=== PATIENT | female | born 1980 | race Caucasian/White ===

== ENCOUNTER → 2016-12-11 | Outpatient (CLI) | payer MEDICAID | LOC: BMCIMAGING 09:54 | PROVIDERS: ATTEND Internal Medicine Rheumatology | DX: M79.641 Pain in right hand (principal); M79.642 Pain in left hand; M05.872 Other rheumatoid arthritis with rheumatoid factor of left ankle and foot; M05.871 Other rheumatoid arthritis with rheumatoid factor of right ankle and foot ==